=== PATIENT | female | born 1975 | race Caucasian/White ===

== ENCOUNTER 2016-09-22 03:25 | Emergency (ER) | payer BC ==
[2016-09-22] MEDS ORDERED: diphenhydrAMINE 50 MG/ML SDV IVPUSH ONE (03:48)
[2016-09-22] MEDS ORDERED: LORazepam 2 MG/ML MDV IVPUSH ONE (03:48)
--- NOTE | 2016-09-22 04:03 | EDM.PDOC ---
ED HPI GENERAL MEDICAL PROBLEM - General Chief Complaint: Allergic Reaction Stated Complaint: ALLERGIC REACTION TO HYDROCODONE Time Seen by Provider: 09/22/16 03:33 Source of Information: Reports: Patient History Limitations: Reports: No Limitations - History of Present Illness INITIAL COMMENTS - FREE TEXT/NARRATIVE: HISTORY AND PHYSICAL: History of present illness: [41-year-old female with a past medical history of anxiety now presents to the emergency department complaining of itching after taking hydrocodone. Patient is concerned that she's having an allergic reaction. She states she's been on hydrocodone since July because she had a surgery, taking it regularly, but she insists that she is allergic to it. Patient does not have hives. She does say her left arm is itchy and she is intermittently scratching vigorously.. She has no rash, voice changes or difficulty breathing. Patient states she has "severe asthma "that she had to use her inhaler earlier. Lungs are clear upon initial evaluation with no bronchospasm. She has no edema. Review of systems: As per history of present illness and below otherwise all systems reviewed and negative. Past medical history: As per history of present illness and as reviewed below otherwise noncontributory. Surgical history: As per history of present illness and as reviewed below otherwise noncontributory. Social history: No reported history of drug or alcohol abuse. Family history: As per history of present illness and as reviewed below otherwise noncontributory. Physical exam: Severely anxious female tearful intermittently covering her face yelling at me and the nurse. Patient is hyperventilating mildly crying and then intermittently vigorously scratches her left arm for a few seconds. She is not scratching anywhere else and she has no hives or skin rash. Normal oropharynx with no edema stridor or voice changes HEENT: Atraumatic, normocephalic, pupils reactive, negative for conjunctival pallor or scleral icterus, mucous membranes moist, throat clear, neck supple, nontender, trachea midline. Lungs: Clear to auscultation, breath sounds equal bilaterally, chest nontender. Heart: S1S2, regular, negative for clicks, rubs, or JVD. Abdomen: Soft, nondistended, nontender. Negative for masses or hepatosplenomegaly. Negative for costovertebral tenderness. Pelvis: Stable nontender. Genitourinary: Deferred. Rectal: Deferred. Extremities: Atraumatic, negative for cords or calf pain. Neurovascular unremarkable. Neuro: Awake, alert, oriented. Cranial nerves grossly unremarkable. Exam nonfocal. Diagnostics: [] Therapeutics: [Ativan and Benadryl given IV] Impression: Severe exacerbation of anxiety Histamine reaction Verbally abusive behavior Hyperventilation Plan: [Signs and symptoms consistent with severe anxiety attack, patient is hyperventilating but she does not have carpal or pedal spasm. She is irrational and very verbally abusive. As the patient stopped yelling at us multiple times and she then called someone on her cell phone and started yelling into the phone that we were yelling at her. Patient is fixated on the idea that she is having an allergic reaction to a medicine she's been on for months. She has no clinical findings to suggest a systemic allergic reaction. She clearly has no evidence whatsoever of any airway involvement. Lungs are clear without any bronchospasm. Offered patient anxiolysis however she is aware that she will not be able to drive if she gets Ativan and Benadryl. Patient decided that she does want treatment and she will get a ride home. When patient's anxiety is improved she will be discharged. She is aware to follow-up with her primary care doctor tomorrow and to use her antianxiety regimen as previously prescribed and if she is getting subtotal relief from her full anxiety regimen that she can discuss with her doctor potential changes as needed. She agrees with outpatient follow- up and strict return precautions will be given Definitive disposition and diagnosis as appropriate pending reevaluation and review of above. no pain Pain Score (Numeric/FACES): 0 - Related Data Allergies Allergy/AdvReac Type Severity Reaction Status Date / Time adhesive Allergy Itching Verified 09/22/16 03:34 ethinyl estradiol Allergy Redness Verified 09/22/16 03:34 [From [facility]] hydrocodone Allergy Itching Verified 09/22/16 03:34 norelgestromin Allergy Redness Verified 09/22/16 03:34 [From [facility]] Sulfa (Sulfonamide Allergy Hives Verified 09/22/16 03:34 Antibiotics) Home Meds: Home Meds Albuterol [Ventolin HFA] 1 - 2 puff INH ASDIRECTED PRN 12/07/14 [History] Albuterol/Ipratropium [DuoNeb 3.0-0.5 MG/3 ML] 1 inh INH ASDIRECTED PRN [History] Cetirizine HCl [Zyrtec] 1 tab PO ACBREAKFAST 12/07/14 [History] Diltiazem HCl [Dilt-Xr] 1 tab PO ACBREAKFAST 12/07/14 [History] Escitalopram [Lexapro] 1 tab PO ACBREAKFAST 12/07/14 [History] Fosinopril/Hydrochlorothiazide [Fosinopril-HCTZ 10-12.5 MG] 1 tab PO BEDTIME [History] Montelukast [Singulair] 1 tab PO PCDINNER 12/07/14 [History] Acetaminophen/oxyCODONE [Percocet 325-5 MG] 1 tab PO Q4H PRN #30 tablet [Rx] Ciprofloxacin [Ciprofloxacin HCl] 500 mg PO BID #14 tablet 12/10/14 [Rx] Past Medical History Other HEENT History: Allergies with rhinitus, sneezing etc Cardiovascular History: Reports: Hypertension Respiratory History: Reports: Asthma Other Gastrointestinal History: reflux with meds Genitourinary History: Reports: None [employer] History: Reports: Musculoskeletal History: Reports: None Other Neuro History: hx: Headaches none for quite awhile Psychiatric History: Reports: Anxiety, Depression Endocrine/Metabolic History: Reports: None Hematologic History: Reports: None Immunologic History: Reports: None Oncologic (Cancer) History: Reports: None Other Dermatologic History: some eczema, no areas currently - Infectious Disease History Infectious Disease History: Reports: None - Past Surgical History HEENT Surgical History: Reports: Adenoidectomy, Tonsillectomy GI Surgical History: Reports: Cholecystectomy Female Surgical History: Reports: Hysterectomy, Other (See Below) Other Musculoskeletal Surgeries/Procedures:: Ganglion Cyst excised Left hand Social & Family History - Family History Family Medical History: Noncontributory - Tobacco Use Smoking Status *Q: Never Smoker - Alcohol Use Days Per Week of Alcohol Use: 1 Number of Drinks Per Day: 1 Total Drinks Per Week: 1 - Recreational Drug Use Recreational Drug Use: No Drug Use in Last 12 Months: No ED ROS ALLERGIC REACTION - Review of Systems Review Of Systems: See Below (history of present illness) ED EXAM GENERAL NO PERIP PULSE - Physical Exam Exam: See Below (history of present illness) Course - Vital Signs Last Recorded V/S: Last Vital Signs Temp 36.2 C 09/22/16 03:35 Pulse 77 09/22/16 03:35 Resp 18 09/22/16 03:35 BP 221/88 H 09/22/16 03:35 Pulse Ox 97 09/22/16 03:35 - Orders/Labs/Meds Labs: Laboratory Tests 09/22/16 Range/Units 04:00 Urine Opiates Screen POSITIVE (NEGATIVE) Ur Oxycodone Screen NEGATIVE (NEGATIVE) Urine Methadone Screen NEGATIVE (NEGATIVE) Ur Barbiturates Screen NEGATIVE (NEGATIVE) Ur Phencyclidine Scrn NEGATIVE (NEGATIVE) Ur Amphetamine Screen NEGATIVE (NEGATIVE) U Methamphetamines Scrn NEGATIVE (NEGATIVE) U Benzodiazepines Scrn NEGATIVE (NEGATIVE) U Cocaine Metab Screen NEGATIVE (NEGATIVE) U Marijuana (THC) Screen NEGATIVE (NEGATIVE) Meds: Medications Discontinued Medications Generic Name Dose Route Start Last Admin Trade Name Freq PRN Reason Stop Dose Admin Diphenhydramine HCl 25 mg 09/22/16 03:48 09/22/16 04:09 Benadryl IVPUSH 09/22/16 03:49 25 mg ONETIME ONE Administration Lorazepam 1 mg 09/22/16 03:48 09/22/16 04:09 Ativan IVPUSH 09/22/16 03:49 1 mg ONETIME ONE Administration Departure - Departure Time of Disposition: 05:06 Disposition: Home, Self-Care 01 Condition: Good, Fair Clinical Impression: Severe anxiety, Verbally abusive behavior - Discharge Information Instructions: Panic Attacks, [id number] Referrals: PCP,None [Primary Care Provider] - Forms: ED Department Discharge Additional Instructions: you've been suffering from severe anxiety today. Take your medication for anxiety as prescribed as needed and follow-up with your doctor today to discuss optimizing this regimen on the possibility of changes as needed. You have not been having a systemic allergic reaction this morning. Your itching may be a result of a histamine response after taking your narcotic dose. A histamine response causes itching which can range from mild to severe. You have no evidence of airway involvement with your response. per your request , we have discarded your hydrocodone. Remember that you had the side effects that you proceed from this medication. Follow-up with your this morning.
[2016-09-22 05:37] VITALS: BP 135/78
== END 2016-09-22 05:35 | disposition home or self-care (01) ==
LOC: MW.ED 03:25
DX: F41.9 Anxiety disorder, unspecified (principal); R06.4 Hyperventilation; T40.2X5A Adverse effect of other opioids, initial encounter; I10 Essential (primary) hypertension; J45.909 Unspecified asthma, uncomplicated; Z88.2 Allergy status to sulfonamides; Z88.5 Allergy status to narcotic agent; Z79.899 Other long term (current) drug therapy; Z90.49 Acquired absence of other specified parts of digestive tract; Z98.890 Other specified postprocedural states; Z90.710 Acquired absence of both cervix and uterus
CPT/HCPCS: 80305; 96374; 96375; 99284; J1200; J2060